=== PATIENT | male | born 1985 | race Hispanic/Latino ===

== ENCOUNTER 2025-03-19 12:59 | Emergency (ER) | payer SELFPAY ==
[~2025-03-19] VITALS: Ht 182.9 cm; Wt 115.7 kg
[2025-03-19 14:12] LABS: IMMATURE GRANULOCYTE ABSOLUTE 0.06 K/uL (0-1); NUCLEATED RED BLOOD CELLS 0.0 % (0.0-0.19); PLATELET COUNT (AUTO) 207 K/uL (130-400); RED BLOOD CELL COUNT(AUTO) 4.87 MIL/uL (4.50-6.20); RED CELL DISTRIBUTION WIDTH 12.1 % (11.0-15.5); WHITE BLOOD COUNT (AUTO) 13.8 K/uL (4.8-10.8)
[2025-03-19 14:24] LABS: CREATININE 1.2 mg/dL (0.5-1.3); GLOMERULAR FILTR. RATE CALC 79.0 mL/min (>90); GLUCOSE,RANDOM 97.0 mg/dL (70-105); SODIUM SERUM 138.0 mmol/L (136-145); UREA NITROGEN, BLOOD 13.0 mg/dL (7-18)
--- NOTE | 2025-03-19 14:31 | ERN ---
ED Note History of Present Illness Stated Complaint: DIZZINESS Chief Complaint: Dizzy/Light Headed Time Seen by MD: 13:08 Time Seen by Midlevel: 13:10 Dictation: 39-year-old male with no past medical history coming in with complaints of feeling dizzy, however states right now dizziness has a resolved only has a headache and nausea. Denies any numbness, tingling, unilateral with a has a time of the dizziness. Denies any neuro gulf neurological deficits at this time. Denies any medical or surgical problems. Denies any recent alcohol or drug use. Denies any chest pain, chest discomfort. Allergies: Coded Allergies: No Known Allergies (Unverified Allergy, Unknown, 03/19/25) Past Medical History Past Medical History: No Pertinent History Surgical History: None Review of System Dictation Constitutional: Negative for fever,chills, and weight loss Eyes: Negative for injury, pain,redness, and discharge ENT: Negative for injury,pain or swelling, complaining of right ear pain about two days ago Cardiovascular: Negative for chest pain, palpitations, and edema Respiratory: Negative for shortness of breath, cough, and wheezing, Abdomen/GI: Negative for abdominal pain, nausea, vomiting, diarrhea, and constipation Back: Negative for injury and pain : Negative for injury, bleeding and discharge MS/Extremity: Negative for injury and deformity Skin: Negative for rash, and discoloration Neuro: Positive for headache with a weakness, numbness coming tingling or seizures Psych: Negative for suicide ideation, homicidal ideation, and hallucinations Review of Systems: was completed Initial Vital Sign VS Vital Signs Date Time Temp Pulse Resp B/P (MAP) Pulse Ox O2 Delivery O2 Flow Rate FiO2 03/19/25 13:01 97.2 85 18 142/86 97 Room Air 0 Physical Exam Dictation General: awake, alert, NAD Head/Face: Normocephalic, atraumatic Eyes: PERRL, EOMI, vision at baseline ENT: oral cavity clear, TMs clear, no signs of infection Neck: Trachea midline, supple, no nuchal rigidity Cardiovascular: RRR, normal S1/S2, No MRGs, no JVD Respiratory: CTAB, no respiratory distress, No rales or wheezes Abdomen: Soft, non-tender, non-distended, normal bowel sounds, no guarding or rebound. Skin: Warm, dry, normal turgor, no rash MS/Extremity: Pulses equal, no cyanosis, neurovascular intact, FROM Neuro: COAx4, GCS 15, strength 5/5, CN 2-12 intact, normal cerebellar exam, normal gait, Psych: Normal behavior, mood, and affect normal Results (Laboratory/Radiology) Laboratory/Radiology Laboratory Tests Test 03/19/25 13:02 03/19/25 16:10 White Blood Count 13.8 K/uL (4.8-10.8) H Red Blood Count 4.87 MIL/uL (4.50-6.20) Hemoglobin 15.3 g/dL (14.0-18.0) Hematocrit 44.0 % (42-54) Mean Corpuscular Volume 90.3 fL (79-99) Mean Corpuscular Hemoglobin 31.4 pg (27.0-33.0) Mean Corpuscular Hemoglobin Concent 34.8 g/dL (32.0-36.0) Red Cell Distribution Width 12.1 % (11.0-15.5) Platelet Count 207 K/uL (130-400) Mean Platelet Volume 12.0 fL (7.5-10.5) H Immature Granulocyte % (Auto) 0.4 % (0-1) Neutrophils (%) (Auto) 84.2 % (40.0-77.0) H Lymphocytes (%) (Auto) 9.9 % (21.0-51.0) L Monocytes (%) (Auto) 4.9 % (3.0-13.0) Eosinophils (%) (Auto) 0.2 % (0.0-8.0) Basophils (%) (Auto) 0.4 % (0.0-5.0) Neutrophils # (Auto) 11.6 K/uL (1.8-7.7) H Lymphocytes # (Auto) 1.4 K/uL (1.0-4.8) Monocytes # (Auto) 0.7 K/uL (0.1-1.0) Eosinophils # (Auto) 0.03 K/uL (0.00-0.70) Basophils # (Auto) 0.05 K/uL (0.00-0.20) Absolute Immature Granulocyte (auto 0.06 K/uL (0-1) Nucleated Red Blood Cells 0.0 % (0.0-0.19) White Cell Morphology Comment See comments Sodium Level 138 mmol/L (136-145) Potassium Level 4.0 mmol/L (3.5-5.1) Chloride Level 105 mmol/L (101-111) Carbon Dioxide Level 26 mmol/L (21-32) Blood Urea Nitrogen 13 mg/dL (7-18) Creatinine 1.2 mg/dL (0.5-1.3) Glomerular Filtration Rate Calc 79 mL/min (>90) Random Glucose 97 mg/dL (70-105) Total Calcium 8.6 mg/dL (8.5-10.1) Troponin I High Sensitivity 5 ng/L (4-75) Urine Color LIGHT-YELLOW (YELLOW) Urine Appearance CLEAR (CLEAR) Urine pH 5.5 (5.0-8.0) Urine Specific Notus 1.027 (1.001-1.031) Urine Protein NEGATIVE mg/dL (NEGATIVE) Urine Glucose (UA) NEGATIVE mg/dL (NEGATIVE) Urine Ketones NEGATIVE mg/dL (NEGATIVE) Urine Occult Blood SMALL (NEGATIVE) H Urine Nitrate NEGATIVE (NEGATIVE) Urine Bilirubin NEGATIVE mg/dL (NEGATIVE) Urine Urobilinogen 0.2 mg/dL (0.2-1.0) Urine Leukocyte Esterase NEGATIVE Rico/uL Urine RBC 6-10 /HPF (0-1) H Urine WBC 2-5 /HPF (0-1) H Urine Other Crystals (Auto) 2 /HPF (None Seen) Urine Bacteria RARE /HPF (None Seen) Urine Hyaline Casts 0-1 /LPF (0-1 /LPF) Urine Opiates Screen NEGATIVE (NEGATIVE) Urine Barbiturates Screen NEGATIVE (NEGATIVE) Urine Phencyclidine Screen NEGATIVE (NEGATIVE) Urine Amphetamines Screen NEGATIVE (NEGATIVE) Urine Benzodiazepines Screen NEGATIVE (NEGATIVE) Urine Cocaine Screen NEGATIVE (NEGATIVE) Urine Marijuana (THC) Screen NEGATIVE (NEGATIVE) Labs Reviewed?: Yes EKG Comment: EKGs done at 1:55 p.m.. Sinus rhythm at a rate of 69. No STEMI interpreted by ER . CT Scan Comment: [place] [id number] [place] [id number] IMAGING REPORT Signed PATIENT: KAREN AMAYA MR#: [id number] : 1985 SEX: M AGE: 39 LOCATION: [facility] ORDER [id number] STATUS: REG ER REPORT#: [id number] SERVICE [id number] REASON: DIZZINESS ORDERING PHYSICIAN: MEL TIMMONS CNP PROCEDURE: HEAD WO - CT HEAD/BRAIN W/O CONTRAST EXAM: CT Head Without IV contrast. CLINICAL HISTORY: DIZZINESS TECHNIQUE: Axial computed tomography images of the head/brain without intravenous contrast. COMPARISON: None provided. FINDINGS: BRAIN: No evidence of acute hemorrhage. No mass lesion. No CT evidence for acute territorial infarct. No midline shift or extra-axial collections. VENTRICLES: No hydrocephalus. ORBITS: The orbits are unremarkable. SINUSES AND MASTOIDS: The paranasal sinuses and mastoid air cells are clear. BONES: No fracture. SOFT TISSUES: Unremarkable. IMPRESSION: No acute intracranial abnormality. /Agness DICTATED BY: YING BOSS MD DATE: 03/19/251528 ELECTRONICALLY SIGNED BY: YING BOSS MD DATE: 03/19/251528 ED Course ED Course Orders Procedure Category Date Status Time Cbc With Differential LAB 03/19/25 Complete 13:53 Basic Metabolic Panel LAB 03/19/25 Complete 13:53 Troponin I High LAB 03/19/25 Complete Sensitivity 13:53 12 Lead Ekg Tracing- EKG 03/19/25 Logged Technical 13:53 Urinalysis Profile LAB 03/19/25 Complete 13:53 Drug Screen Urine LAB 03/19/25 Complete 13:53 Ct Head/Brain W/O CT 03/19/25 Resulted Contrast 13:53 0.9%Nacl 1000ml (Ns PHA 03/19/25 Complete 1000ml) 13:53 Meclizine Hcl 25 Mg PHA 03/19/25 Complete (Antivert 25 Mg) 13:53 Ondansetron 4mg Inj PHA 03/19/25 Complete (Zofran 4mg Inj) 14:00 Current Medications Medications (Trade) Dose Ordered Sig/Mateusz Route PRN Reason Start Time Stop Time Status Last Admin Dose Admin Meclizine HCl (ANTIvert 25 mg) 25 mg ONCE STAT PO 03/19/25 13:53 03/19/25 13:58 DC 12/24/25 16:15 Ondansetron HCl (zoFRAN 4MG INJ) 4 mg ONCE ONCE IVP 03/19/25 14:00 03/19/25 14:01 DC 03/19/25 16:15 Sodium Chloride 1,000 ml @ 1,000 mls/hr Q1H STAT IV 03/19/25 13:53 03/19/25 14:52 DC 03/19/25 16:15 Vital Signs Date Time Temp Pulse Resp B/P (MAP) Pulse Ox O2 Delivery O2 Flow Rate FiO2 03/19/25 13:01 97.2 85 18 142/86 97 Room Air 0 Medical Decision Making MDM MDM: Year old male presents with a dizziness upon wakening this morning which has since resolved. Currently reports headache and nausea with a mild photophobia. Denies fever, neck stiffness, trauma, numbness, tingling, weakness, slurred speech, chest pain, shortness a breath or vision loss. No history of migraines or similar symptoms in the past. Lab CBC and CMP unremarkable, no metabolic abnormalities. CT of the head shows no acute intracranial abnormality. Troponin is negative. EKGs did not show any ST elevations or dysrhythmias. In the emergency room patient received fluids, meclizine and Zofran which the now patient's since symptoms has a resolved. Presentation most consistent with nonspecific headache with a resolved dizziness possibly migraine type versus benign. No neurological deficits or red flag symptoms. CT imaging and labs negative, making intracranial pathology unlikely. Safe for outpatient management. Differential diagnosis: Migraine, tension headache, dehydration, dizziness, vertigo, CVA. Rationale: Tests considered and ordered secondary to shared decision making include: Previous outside records reviewed: Old ER visits. Risk of complication and/or morbidity or mortality of patient management: None Medications-Per medication reconciliation Need for hospitalization: Patient does not meet criteria for hospitalization. Need for emergency major/minor surgery: No There are no social concerns with this patient. Prescription drug management Prescriptions will include symptomatic care Patient's prior external medical records from other ER visits were reviewed by me as indicated. Prior testing and results from previous visits were reviewed. Prior tests were taken into account with medical decision making and resource utilization, independent historian/historians were used to obtain complete medical history. I independently interpreted the test that were performed, results were reviewed by me and considered findings on radiology if ordered. Medical management and examination interpretation discussions were had by me with other qualified healthcare professionals as indicated for the patient's care. DX & DISP Disposition: Discharge Departure Impression: Primary Impression: Headache Additional Impression: Dizziness Condition: Stable Additional Instructions: Take the meclizine as needed for the dizziness, if you develop a headache take Tylenol or Motrin. If you develop any severe headache with nausea and vomiting, vision changes, slurred speech, numbness, tingling return to the hospital immediately. Referrals: SELF,REFERRAL (PCP) Time of Disposition: 17:09 I have reviewed the case, and I agree with, Diagnosis and Plan MEL TIMMONS [facility] Mar 19, 2025 14:31
[2025-03-19] MEDS: 0.9%NACL 1000ML 1,000 ML IV STA (16:15)
--- NOTE | 2025-03-19 16:15 | NUR ---
MOVED INTO ED BED10 AT THIS TIME.
[2025-03-19 16:19] LABS: APPEARANCE,URINE CLEAR (CLEAR); GLUCOSE, URINE (UA) NEGATIVE (NEGATIVE); LEUKOCYTE ESTERASE ,URINE NEGATIVE Leu/uL (NEGATIVE); NITRATE,URINE NEGATIVE (NEGATIVE); OCCULT BLOOD,URINE SMALL (NEGATIVE)
[2025-03-19 16:20] LABS: ADD UA MICROSCOPIC YES
[2025-03-19 16:23] LABS: HYALINE CASTS, URINE 0-1 /LPF (0-1 /LPF); UNCLASSIFIED CRYSTAL 2 /HPF (None Seen)
[2025-03-19 16:26] LABS: AMPHET/METH SCREEN,URINE NEGATIVE (NEGATIVE); BARBITURATE SCREEN, URINE NEGATIVE (NEGATIVE); CANNABINOID SCREEN,URINE NEGATIVE (NEGATIVE); COCAINE SCREEN,URINE NEGATIVE (NEGATIVE)
[2025-03-19 17:36] VITALS: BP 123/81; PULSE 84; RESP 20; TEMP 97.9; O2SAT 96
--- NOTE | 2025-03-21 11:20 | EKG ---
[facility] Test Date: 2025-03-19 Test Time: 13:55:47 Pat Name: KAREN AMAYA Department: [facility] Room: Gender: Communicable Disease Specialist: [facility] : 1985 Requested By: MEL TIMMONS Order Number: [id number] Reading MD: Karoline Corado Measurements Intervals [place]frey Rate: 69 P: 30 NM: 157 QRS: 56 QRSD: 91 T: 54 QT: 381 QTc: 410 Interpretive Statements Sinus rhythm No previous ECG available for comparison Electronically Signed On 03-24-2025 08:50:09 SOCIAL SERVICES by Karoline Corado Please click the below link to view image of tracing.
== END 2025-03-19 17:37 | disposition home or self-care (01) ==
LOC: EDH 12:59
DX: R51.9 Headache, unspecified (principal); R42 Dizziness and giddiness; R11.0 Nausea
CPT/HCPCS: 99285; 96374; 70450; 96361; 84484; 80048; 80305; 85025; 81001; 36415; 93005; J7030; J2405